=== PATIENT | female | born 1965 | race African-American/Black ===

== ENCOUNTER → 2024-08-03 10:59 | Outpatient (REF) | payer OTHER, SELFPAY ==
[2024-08-03 13:03] LABS: Rubella Positive
[2024-08-03 19:19] LABS: Hepatitis B Surface Antibody Indeterminate
[2024-08-05 14:57] LABS: Quantiferon Mitogen minus NIL 9.91 IU/mL; Quantiferon NIL 0.09 IU/mL; Quantiferon Plus TB2 minus NIL 0.02 IU/mL (<=0.34); Quantiferon TB Gold Plus Negative (Negative)
== END ==
LOC: OHS 10:59
PROVIDERS: ATTENDING PHYSICIAN Nurse Practitioner Family
DX: Z23 Encounter for immunization (principal)
CPT/HCPCS: 36415; 86480; 86706; 86735; 86762; 86765; 86787